=== PATIENT | female | born 1965 | race Caucasian/White ===

== ENCOUNTER 2019-04-09 18:03 | Emergency (ER) | payer OTHER ==
[~2019-04-09] VITALS: Ht 162.6 cm; Wt 74.8 kg
--- NOTE | 2019-04-09 18:56 | NUR ---
Dr velazquez at the bedside for MSE.
[2019-04-09 20:55] VITALS: BP 127/71
--- NOTE | 2019-04-09 20:55 | NUR ---
Patient discharged to home in stable conditon. Written and verbal after care instructions given. Patient verbalizes understanding of instructions. Patient ambulating with steady gait
== END 2019-04-09 20:53 | disposition home or self-care (01) ==
LOC: ER 18:06
DX: J06.9 Acute upper respiratory infection, unspecified (principal)
CPT/HCPCS: 71046; A4663